=== PATIENT | female | born 1975 | race Caucasian/White ===

== ENCOUNTER → 2024-01-28 16:25 | Outpatient (REF) | payer BC, SELFPAY | LOC: RAD 16:25 | PROVIDERS: ATTENDING PHYSICIAN Internal Medicine | DX: M25.552 Pain in left hip (principal) | CPT/HCPCS: 73502 ==

== ENCOUNTER → 2024-07-15 12:59 | Outpatient (REF) | payer BC, SELFPAY | LOC: WDC 12:59 | PROVIDERS: ATTENDING PHYSICIAN Internal Medicine | DX: Z12.39 Encounter for other screening for malignant neoplasm of breast (principal); Z12.31 Encounter for screening mammogram for malignant neoplasm of breast | CPT/HCPCS: 77063; 77067 ==